=== PATIENT | female | born 1980 | race Two or more races ===

== ENCOUNTER 2017-07-14 23:33 | Emergency (ER) | payer SELFPAY ==
[~2017-07-14] VITALS: Ht 162.6 cm; Wt 99.8 kg
[2017-07-15 00:13] LABS: Basophils # (auto) 0.3 uL; Basophils % (auto) 2.5 % (0.0-2.0); DEFINITIVE SEE PRINTOUT; Eosinophils # (auto) 0.4 uL; Eosinophils % (auto) 3.3 % (0.0-7.0); Hematocrit 31.2 % (36.0-46.0); Hemoglobin 9.7 g/dL (12.2-16.2); Lymphocytes # (auto) 3.3 uL; Lymphocytes % (auto) 26.9 % (10.0-50.0); Mean Corpuscular Hemoglobin 26.3 pg (28.0-32.0); Mean Corpuscular Hgb Conc. 31.1 g/dL (32.0-36.0); Mean Corpuscular Volume 84.6 fL (80.0-100.0); Mean Platelet Volume 7.5 fL (7.4-10.4); Monocytes # (auto) 1.2 uL; Monocytes % (auto) 9.4 % (0.0-12.0); Neutrophils # (auto) 7.2 uL; Neutrophils % (auto) 57.9 % (37.0-80.0); Platelet Count (auto) 507 10^3/uL (140-450); Red Cell Distribution Width 15.2 % (11.6-16.0); White Blood Cell 12.4 10^3/uL (4.4-10.8)
[2017-07-15 00:38] LABS: Albumin 2.9 g/dL (3.4-5.0); Anion Gap 13 (5-15); Aspartate Aminotransferase 26 U/L (15-37); BUN/Creatinine Ratio 22.1; Blood Urea Nitrogen 17 mg/dL (7-18); Calcium 7.2 mg/dL (8.5-10.1); Carbon Dioxide 17 mmol/L (21-32); Chloride 114 mmol/L (98-107); GFR African American 109 mL/min; GFR Non-African American 90 mL/min; Glucose 180 mg/dL (74-106); Potassium 3.4 mmol/L (3.5-5.1); Sodium 144 mmol/L (136-145)
[2017-07-15 00:41] LABS: Alkaline Phosphatase 92 U/L (45-117); Bilirubin, Total < 0.1 mg/dL (0.2-1.0); Total Protein 6.8 g/dL (6.4-8.2)
[2017-07-15 02:29] VITALS: BP 118/78
== END 2017-07-15 02:33 | disposition home or self-care (01) ==
LOC: ER 23:37
DX: S43.102A Unspecified dislocation of left acromioclavicular joint, initial encounter (principal); Y08.89XA Assault by other specified means, initial encounter; Y93.89 Activity, other specified; Y99.8 Other external cause status; Y92.89 Other specified places as the place of occurrence of the external cause
CPT/HCPCS: 36415; 73030; 80053; 84702; 85025

== ENCOUNTER 2017-12-20 13:47 | Inpatient (IN) | payer MEDICAID ==
[~2017-12-20] VITALS: Ht 167.6 cm; Wt 95.0 kg
[2017-12-20] MEDS ORDERED: SODIUM CHLORIDE 0.9% 1,000 ML IV ONE (14:01)
[2017-12-20] MEDS ORDERED: ALBUTEROL SULF 2.5 MG/0.5ML(0.5%) NEB SOLN HHN ONE (14:15)
[2017-12-20] MEDS ORDERED: IPRATROPIUM BROM 0.5 MG/2.5ML INH SOL HHN ONE (14:15)
[2017-12-20] MEDS ORDERED: methylPREDNISolone SOD SUCC 125 MG/2 ML VL IV ONE (14:15)
[2017-12-20 14:35] LABS: Eosinophils # (auto) 0 uL; Hemoglobin 10.1 g/dL (12.2-16.2); Lymphocytes # (auto) 4.2 uL; Nucleated Red Blood Cells % 0.1 %; White Blood Cell 17.3 10^3/uL (4.4-10.8)
[2017-12-20 14:37] LABS: Basophils # (auto) 0.2 uL; Basophils % (auto) 1.3 % (0.0-2.0); Eosinophils % (auto) 0.2 % (0.0-7.0); Hematocrit 32.5 % (36.0-46.0); Lymphocytes % (auto) 24.3 % (10.0-50.0); Mean Corpuscular Hemoglobin 24.1 pg (28.0-32.0); Mean Corpuscular Hgb Conc. 31.2 g/dL (32.0-36.0); Mean Corpuscular Volume 77.4 fL (80.0-100.0); Monocytes # (auto) 1.4 uL; Neutrophils # (auto) 11.5 uL; Neutrophils % (auto) 66.2 % (37.0-80.0); Platelet Count (auto) 482 10^3/uL (140-450); Red Cell Distribution Width 16.9 % (11.8-14.3)
[2017-12-20 15:03] LABS: Albumin 3.5 g/dL (3.4-5.0); BUN/Creatinine Ratio 7.4; Bilirubin, Total 0.2 mg/dL (0.2-1.0); Calcium 8.6 mg/dL (8.5-10.1); Potassium 3.1 mmol/L (3.5-5.1); Total Protein 8.4 g/dL (6.4-8.2)
[2017-12-20] MEDS ORDERED: DEXTROSE (50%) 50ML SYRG IV PRN (16:15)
[2017-12-20] MEDS ORDERED: NITROGLYCERIN 0.4 MG SL TAB SL PRN (16:15)
[2017-12-20] MEDS ORDERED: MORPHINE SULFATE 4 MG/ML SYR/VIAL IV PRN (16:15)
[2017-12-20] MEDS ORDERED: ALBUTEROL SULF 2.5 MG/0.5ML(0.5%) NEB SOLN NEB PRN (16:15)
[2017-12-20] MEDS ORDERED: LACTULOSE 20Gm/30ML SOLN PO PRN (16:15)
[2017-12-20] MEDS: ACCU-CHEK COMFORT CURVE STRIP VI SCH ×2 (17:11→21:22)
[2017-12-20] MEDS: InsuLIN REG 1unit/0.01ml Soln (100units/ml) SC SCH ×2 (17:37→21:18)
[2017-12-20] MEDS: ALBUTEROL SULF 2.5 MG/0.5ML(0.5%) NEB SOLN NEB SCH ×2 (18:15→23:23)
[2017-12-20 19:19] VITALS: BP 114/92
[2017-12-20] MEDS: ACETAMINOPHEN 500 MG TAB PO PRN (21:17)
[2017-12-20 22:00] VITALS: BP 134/66
[2017-12-21] MEDS ORDERED: methylPREDNISolone SOD SUCC 125 MG/2 ML VL IV ONE (00:45)
[2017-12-21 05:00] VITALS: BP 132/75
[2017-12-21] MEDS: InsuLIN REG 1unit/0.01ml Soln (100units/ml) SC SCH ×5 (06:03→21:48)
[2017-12-21 06:52] LABS: Basophils # (auto) 0 uL; Eosinophils # (auto) 0 uL; Lymphocytes # (auto) 0.5 uL; Monocytes # (auto) 0.1 uL; Neutrophils # (auto) 11.1 uL; Neutrophils % (auto) 94.3 % (37.0-80.0); Red Blood Cells 3.84 10^6/uL (4.0-5.20); White Blood Cell 11.8 10^3/uL (4.4-10.8)
[2017-12-21 06:55] LABS: Basophils % (auto) 0.2 % (0.0-2.0); Hematocrit 29.3 % (36.0-46.0); Hemoglobin 9.2 g/dL (12.2-16.2); Lymphocytes % (auto) 4.6 % (10.0-50.0); Mean Corpuscular Hgb Conc. 31.4 g/dL (32.0-36.0); Mean Corpuscular Volume 76.4 fL (80.0-100.0); Monocytes % (auto) 0.9 % (0.0-12.0); Platelet Count (auto) 386 10^3/uL (140-450); Red Cell Distribution Width 16.7 % (11.8-14.3)
[2017-12-21] MEDS: ALBUTEROL SULF 2.5 MG/0.5ML(0.5%) NEB SOLN NEB SCH ×4 (06:58→23:54)
[2017-12-21] MEDS: ACCU-CHEK COMFORT CURVE STRIP VI SCH ×5 (07:28→21:48)
[2017-12-21 08:20] VITALS: BP 134/71
[2017-12-21] MEDS: cefTRIAXone 1GM/10ml IVPUSH 10 ML IV SCH (11:11)
[2017-12-21] MEDS ORDERED: DEXTROSE (50%) 50ML SYRG IV PRN (11:15)
[2017-12-21] MEDS ORDERED: SODIUM CHLORIDE 0.9% 1,000 ML IV ONE (11:15)
[2017-12-21 11:53] VITALS: BP 125/77
[2017-12-21] MEDS: ACETYLCYSTEINE 10 %(100MG/ML) SOL 4ML NEB SCH ×2 (12:00→19:01)
[2017-12-21] MEDS: methylPREDNISolone SOD SUCC 40 MG/ML VL IV SCH ×2 (12:16→19:40)
[2017-12-21] MEDS ORDERED: IOHEXOL 350 MG/ML 100ML IJ ONE (12:30)
[2017-12-21 15:25] LABS: Alcohol, Urine < 3.0 mg/dL (0-5); Amphetamine Screen, Urine NEGATIVE (NEGATIVE); Barbiturate Scree,Urine NEGATIVE (NEGATIVE); Benzodiazephine Screen, Urine NEGATIVE (NEGATIVE); Cannabinoid Screen, Urine NEGATIVE (NEGATIVE); Cocaine Screen, Urine NEGATIVE (NEGATIVE); Opiate Scree,Urine NEGATIVE (NEGATIVE); Phencyclidine Screen, Urine NEGATIVE (NEGATIVE)
[2017-12-21 17:12] VITALS: BP 134/66
[2017-12-21] MEDS: LORazepam 0.5 MG TAB PO PRN (18:01)
[2017-12-21 22:04] VITALS: BP 121/72
[2017-12-21] MEDS: ACETAMINOPHEN 500 MG TAB PO PRN (23:18)
[2017-12-22] MEDS: LORazepam 0.5 MG TAB PO PRN ×2 (00:49→16:34)
[2017-12-22] MEDS: ACETYLCYSTEINE 10 %(100MG/ML) SOL 4ML NEB SCH ×4 (01:02→19:51)
[2017-12-22] MEDS: methylPREDNISolone SOD SUCC 40 MG/ML VL IV SCH ×2 (05:22→12:30)
[2017-12-22 05:27] VITALS: BP 106/52
[2017-12-22] MEDS: ACCU-CHEK COMFORT CURVE STRIP VI SCH ×4 (05:31→22:19)
[2017-12-22 06:02] LABS: Basophils # (auto) 0 uL; Eosinophils # (auto) 0 uL; Lymphocytes # (auto) 1.3 uL; Neutrophils # (auto) 15.2 uL
[2017-12-22] MEDS: InsuLIN REG 1unit/0.01ml Soln (100units/ml) SC SCH ×4 (06:04→22:19)
[2017-12-22 06:05] LABS: Basophils % (auto) 0.1 % (0.0-2.0); Hematocrit 28.9 % (36.0-46.0); Lymphocytes % (auto) 7.3 % (10.0-50.0); Mean Corpuscular Hemoglobin 23.9 pg (28.0-32.0); Mean Corpuscular Hgb Conc. 31.3 g/dL (32.0-36.0); Mean Corpuscular Volume 76.4 fL (80.0-100.0); Monocytes # (auto) 0.6 uL; Monocytes % (auto) 3.4 % (0.0-12.0); Neutrophils % (auto) 89.2 % (37.0-80.0); Platelet Count (auto) 379 10^3/uL (140-450); Red Blood Cells 3.78 10^6/uL (4.0-5.20); Red Cell Distribution Width 17.1 % (11.8-14.3)
[2017-12-22 06:18] LABS: Calcium 8.5 mg/dL (8.5-10.1); Potassium 3.8 mmol/L (3.5-5.1)
[2017-12-22] MEDS: ALBUTEROL SULF 2.5 MG/0.5ML(0.5%) NEB SOLN NEB SCH ×3 (08:37→19:51)
[2017-12-22 09:00] VITALS: BP 124/76
[2017-12-22] MEDS: cefTRIAXone 1GM/10ml IVPUSH 10 ML IV SCH (09:07)
[2017-12-22 13:00] VITALS: BP 140/73
[2017-12-22 17:00] VITALS: BP 116/69
[2017-12-22] MEDS ORDERED: EPINEPHrine HCL 0.5 ML NEB NEB ONE (19:15)
[2017-12-22 20:00] VITALS: BP 125/76
[2017-12-22] MEDS: ACETAMINOPHEN 500 MG TAB PO PRN (21:05)
[2017-12-22 21:55] VITALS: BP 125/76
[2017-12-22] MEDS: predniSONE 20 MG TAB PO SCH (22:18)
[2017-12-23] VITALS (7 sets, daily range): BP systolic 107–147; BP diastolic 59–84
[2017-12-23] MEDS: LORazepam 0.5 MG TAB PO PRN ×3 (00:32→17:43)
[2017-12-23] MEDS: ALBUTEROL SULF 2.5 MG/0.5ML(0.5%) NEB SOLN NEB SCH ×4 (01:01→20:03)
[2017-12-23] MEDS: ACETYLCYSTEINE 10 %(100MG/ML) SOL 4ML NEB SCH ×4 (01:02→20:03)
[2017-12-23] MEDS: ACCU-CHEK COMFORT CURVE STRIP VI SCH ×4 (06:41→21:32)
[2017-12-23] MEDS: InsuLIN REG 1unit/0.01ml Soln (100units/ml) SC SCH ×4 (06:42→21:36)
[2017-12-23] MEDS: predniSONE 20 MG TAB PO SCH ×2 (08:59→21:32)
[2017-12-23] MEDS: ACETAMINOPHEN 500 MG TAB PO PRN (20:27)
[2017-12-24] MEDS: ALBUTEROL SULF 2.5 MG/0.5ML(0.5%) NEB SOLN NEB SCH ×3 (00:52→11:27)
[2017-12-24] MEDS: ACETYLCYSTEINE 10 %(100MG/ML) SOL 4ML NEB SCH ×3 (00:52→11:27)
[2017-12-24] MEDS: LORazepam 0.5 MG TAB PO PRN ×2 (01:58→10:02)
[2017-12-24 05:25] VITALS: BP 118/74
[2017-12-24] MEDS: InsuLIN REG 1unit/0.01ml Soln (100units/ml) SC SCH ×2 (06:20→11:47)
[2017-12-24] MEDS: ACCU-CHEK COMFORT CURVE STRIP VI SCH ×2 (06:20→11:47)
[2017-12-24 09:00] VITALS: BP 141/75
[2017-12-24] MEDS: predniSONE 20 MG TAB PO SCH (10:02)
[2017-12-24 13:00] VITALS: BP 150/60
[2017-12-24 13:48] VITALS: BP 141/75
== END 2017-12-24 15:45 | disposition home or self-care (01) | DRG 115 ==
LOC: EDBD 13:47 → ER 13:47 → TELE 13:48 → TELE-WESTW 19:52
PROVIDERS: ADMIT Internal Medicine; ATTEND Internal Medicine
DX: J38.6 Stenosis of larynx (principal); J96.00 Acute respiratory failure, unspecified whether with hypoxia or hypercapnia; E11.65 Type 2 diabetes mellitus with hyperglycemia; J45.901 Unspecified asthma with (acute) exacerbation; E66.9 Obesity, unspecified; D72.829 Elevated white blood cell count, unspecified; R00.0 Tachycardia, unspecified; F41.9 Anxiety disorder, unspecified; J45.909 Unspecified asthma, uncomplicated; Z79.899 Other long term (current) drug therapy; Z83.3 Family history of diabetes mellitus; Z98.84 Bariatric surgery status; Z68.33 Body mass index [BMI] 33.0-33.9, adult; J40 Bronchitis, not specified as acute or chronic
CPT/HCPCS: 36415; 70490; 71045; 71275; 80048; 80053; 80307; 81025; 82962; 83036; 84132; 85025; 85379; 87400; 94640; 94644; 96374; J1815

== ENCOUNTER 2017-12-28 16:36 | Inpatient (IN) | payer MEDICAID ==
[~2017-12-28] VITALS: Ht 167.6 cm; Wt 99.3 kg
[2017-12-28] MEDS ORDERED: SODIUM CHLORIDE 0.9% 1,000 ML IV ONE (16:44)
[2017-12-28 17:01] LABS: Basophils # (auto) 0 uL; Basophils % (auto) 0.2 % (0.0-2.0); Eosinophils # (auto) 0.1 uL; Hemoglobin 10.5 g/dL (12.2-16.2); Lymphocytes # (auto) 2.1 uL; Mean Corpuscular Hemoglobin 23.8 pg (28.0-32.0); Mean Corpuscular Hgb Conc. 30.8 g/dL (32.0-36.0); Monocytes # (auto) 0.7 uL; Red Cell Distribution Width 18.1 % (11.8-14.3)
[2017-12-28 17:03] LABS: Eosinophils % (auto) 0.7 % (0.0-7.0); Lymphocytes % (auto) 20.7 % (10.0-50.0); Mean Corpuscular Volume 77.5 fL (80.0-100.0); Monocytes % (auto) 7.4 % (0.0-12.0); Neutrophils # (auto) 7.1 uL; Platelet Count (auto) 472 10^3/uL (140-450); Red Blood Cells 4.39 10^6/uL (4.0-5.20)
[2017-12-28] MEDS ORDERED: ALBUTEROL SULF 2.5 MG/0.5ML(0.5%) NEB SOLN NEB ONE (17:15)
[2017-12-28] MEDS ORDERED: methylPREDNISolone SOD SUCC 125 MG/2 ML VL IV ONE (17:15)
[2017-12-28] MEDS ORDERED: PANTOPRAZOLE 40 MG/10 ML VIAL IV ONE (17:15)
[2017-12-28] MEDS ORDERED: IPRATROPIUM BROM 0.5 MG/2.5ML INH SOL NEB ONE (17:15)
[2017-12-28 17:18] LABS: Albumin 3.5 g/dL (3.4-5.0); Anion Gap 10 (5-15); BUN/Creatinine Ratio 12.7; Blood Urea Nitrogen 10 mg/dL (7-18); Carbon Dioxide 24 mmol/L (21-32); Chloride 108 mmol/L (98-107); GFR African American 105 mL/min; GFR Non-African American 87 mL/min; Glucose 223 mg/dL (74-106); Magnesium 2.2 mg/dL (1.6-2.6); Potassium 3.8 mmol/L (3.5-5.1); Sodium 142 mmol/L (136-145)
[2017-12-28 17:21] LABS: Alanine Aminotransferase 27 U/L (13-56); Alkaline Phosphatase 84 U/L (45-117); Aspartate Aminotransferase 15 U/L (15-37); Bilirubin, Total 0.2 mg/dL (0.2-1.0); Total Protein 7.5 g/dL (6.4-8.2)
[2017-12-28] MEDS ORDERED: NITROGLYCERIN 0.4 MG SL TAB SL PRN (18:30)
[2017-12-28] MEDS ORDERED: TEMAZEPAM 15 MG CAP PO PRN (18:30)
[2017-12-28] MEDS ORDERED: OSELTAMIVIR 75 MG CAP PO ONE (18:30)
[2017-12-28] MEDS ORDERED: ACETAMINOPHEN 500 MG TAB PO PRN (18:30)
[2017-12-28] MEDS ORDERED: LACTULOSE 20Gm/30ML SOLN PO PRN (18:30)
[2017-12-28] MEDS ORDERED: DEXTROSE (50%) 50ML SYRG IV PRN (18:30)
[2017-12-28] MEDS ORDERED: LORazepam 0.5 MG TAB PO PRN (18:30)
[2017-12-28] MEDS ORDERED: ALBUTEROL SULF 2.5 MG/0.5ML(0.5%) NEB SOLN NEB PRN (18:30)
[2017-12-28] MEDS ORDERED: MORPHINE SULFATE 4 MG/ML SYR/VIAL IV PRN (18:30)
[2017-12-28] MEDS ORDERED: PROMETHAZINE HCL 25 MG/ML 1ML IV PRN (18:30)
[2017-12-28] MEDS: SODIUM CHLORIDE 0.9% 1,000 ML IV SCH (18:42)
[2017-12-28 19:55] VITALS: BP 138/61
[2017-12-28 20:15] VITALS: BP 136/74
[2017-12-28] MEDS: MORPHINE SULFATE 4 MG/ML SYR/VIAL IV PRN (21:46)
[2017-12-28] MEDS: DOXYCYCLINE HYC 100MG/250ML 250 ML IV SCH (21:59)
[2017-12-28 22:00] VITALS: BP 136/74
[2017-12-28 22:33] LABS: Urine Bacteria NONE SEEN /hpf (None Seen); Urine Blood Negative /uL (Negative); Urine Mucus FEW (None Seen); Urine Specific Gravity 1.032 (1.001-1.035); Urine WBC 1 /hpf (0 - 5)
[2017-12-28] MEDS: InsuLIN REG 1unit/0.01ml Soln (100units/ml) SC SCH (22:53)
[2017-12-28] MEDS: ACCU-CHEK COMFORT CURVE STRIP VI SCH (22:53)
[2017-12-28] MEDS: IPRATROPIUM BROM 0.5 MG/2.5ML INH SOL NEB SCH (23:51)
[2017-12-28] MEDS: ALBUTEROL SULF 2.5 MG/0.5ML(0.5%) NEB SOLN NEB SCH (23:51)
[2017-12-28] MEDS: methylPREDNISolone SOD SUCC 40 MG/ML VL IV SCH (23:58)
[2017-12-29] MEDS: HYDROcodone-ACET 5/325MG TAB PO PRN (00:09)
[2017-12-29] MEDS ORDERED: methylPREDNISolone SOD SUCC 125 MG/2 ML VL IV ONE (01:00)
[2017-12-29] MEDS ORDERED: THROAT LOZENGES(CEPASTAT) MT PRN (01:00)
[2017-12-29] MEDS ORDERED: PRE1T PO (03:36)
[2017-12-29] MEDS ORDERED: LORA-654 PO (03:36)
[2017-12-29 05:00] VITALS: BP 139/79
[2017-12-29] MEDS: methylPREDNISolone SOD SUCC 40 MG/ML VL IV SCH ×3 (05:50→18:38)
[2017-12-29] MEDS: DOXYCYCLINE HYC 100MG/250ML 250 ML IV SCH ×2 (05:58→18:45)
[2017-12-29] MEDS: ACCU-CHEK COMFORT CURVE STRIP VI SCH ×4 (06:00→21:57)
[2017-12-29] MEDS: InsuLIN REG 1unit/0.01ml Soln (100units/ml) SC SCH ×4 (06:04→21:57)
[2017-12-29] MEDS: IPRATROPIUM BROM 0.5 MG/2.5ML INH SOL NEB SCH ×3 (06:42→19:47)
[2017-12-29] MEDS: ALBUTEROL SULF 2.5 MG/0.5ML(0.5%) NEB SOLN NEB SCH (06:42)
[2017-12-29] MEDS: MORPHINE SULFATE 4 MG/ML SYR/VIAL IV PRN ×3 (07:40→15:48)
[2017-12-29] MEDS: SODIUM CHLORIDE 0.9% 1,000 ML IV SCH ×2 (07:41→21:01)
[2017-12-29 08:22] VITALS: BP 131/77
[2017-12-29] MEDS: HYDROcodone-ACET 10/325MG TAB PO PRN ×4 (08:44→21:55)
[2017-12-29] MEDS ORDERED: OSELTAMIVIR 75 MG CAP PO SCH (10:00)
[2017-12-29 11:58] VITALS: BP 130/75
[2017-12-29 17:04] VITALS: BP 137/71
[2017-12-29] MEDS: EPINEPHrine HCL 0.5 ML NEB NEB SCH (19:47)
[2017-12-29 21:40] VITALS: BP 137/68
[2017-12-30] MEDS: EPINEPHrine HCL 0.5 ML NEB NEB SCH ×4 (01:07→20:05)
[2017-12-30] MEDS: IPRATROPIUM BROM 0.5 MG/2.5ML INH SOL NEB SCH ×4 (01:07→20:05)
[2017-12-30 04:40] VITALS: BP 120/71
[2017-12-30] MEDS: DOXYCYCLINE HYC 100MG/250ML 250 ML IV SCH ×2 (05:23→18:30)
[2017-12-30] MEDS: methylPREDNISolone SOD SUCC 40 MG/ML VL IV SCH ×4 (05:23→18:43)
[2017-12-30] MEDS: InsuLIN REG 1unit/0.01ml Soln (100units/ml) SC SCH ×4 (05:24→22:22)
[2017-12-30] MEDS: ACCU-CHEK COMFORT CURVE STRIP VI SCH ×4 (05:24→22:22)
[2017-12-30 08:00] VITALS: BP 132/73
[2017-12-30] MEDS: HYDROcodone-ACET 10/325MG TAB PO PRN ×4 (08:00→18:43)
[2017-12-30] MEDS: MORPHINE SULFATE 4 MG/ML SYR/VIAL IV PRN ×3 (08:22→18:43)
[2017-12-30] MEDS ORDERED: CEFTRIAXONE SODIUM 2 GM in D5W 5% 50 ML IV ONE (09:30)
[2017-12-30] MEDS: SODIUM CHLORIDE 0.9% 1,000 ML IV SCH ×2 (10:31→23:33)
[2017-12-30 12:20] VITALS: BP 121/66
[2017-12-30 16:38] VITALS: BP 136/79
[2017-12-30] MEDS: HYDROcodone-ACET 5/325MG TAB PO PRN (20:51)
[2017-12-30 22:29] VITALS: BP 124/64
[2017-12-31] MEDS: IPRATROPIUM BROM 0.5 MG/2.5ML INH SOL NEB SCH ×3 (00:52→12:14)
[2017-12-31] MEDS: EPINEPHrine HCL 0.5 ML NEB NEB SCH ×3 (00:52→12:14)
[2017-12-31] MEDS: methylPREDNISolone SOD SUCC 40 MG/ML VL IV SCH ×2 (04:29)
[2017-12-31 05:14] VITALS: BP 127/80
[2017-12-31] MEDS: InsuLIN REG 1unit/0.01ml Soln (100units/ml) SC SCH (05:37)
[2017-12-31] MEDS: ACCU-CHEK COMFORT CURVE STRIP VI SCH (05:39)
[2017-12-31] MEDS: DOXYCYCLINE HYC 100MG/250ML 250 ML IV SCH (05:39)
[2017-12-31 06:52] LABS: Basophils # (auto) 0 uL; Basophils % (auto) 0.1 % (0.0-2.0); Eosinophils # (auto) 0 uL; Hemoglobin 9.9 g/dL (12.2-16.2)
[2017-12-31 06:54] LABS: Hematocrit 31.5 % (36.0-46.0); Lymphocytes # (auto) 1.2 uL; Lymphocytes % (auto) 8.2 % (10.0-50.0); Mean Corpuscular Hemoglobin 24.2 pg (28.0-32.0); Mean Corpuscular Hgb Conc. 31.3 g/dL (32.0-36.0); Mean Corpuscular Volume 77.1 fL (80.0-100.0); Monocytes # (auto) 0.6 uL; Monocytes % (auto) 4.3 % (0.0-12.0); Neutrophils # (auto) 13.2 uL; Neutrophils % (auto) 87.4 % (37.0-80.0); Platelet Count (auto) 394 10^3/uL (140-450); Red Blood Cells 4.08 10^6/uL (4.0-5.20); Red Cell Distribution Width 17.9 % (11.8-14.3); White Blood Cell 15.1 10^3/uL (4.4-10.8)
[2017-12-31 06:59] LABS: BUN/Creatinine Ratio 34.5; Calcium 8.2 mg/dL (8.5-10.1); Potassium 4.2 mmol/L (3.5-5.1)
[2017-12-31 09:00] VITALS: BP 129/84
[2017-12-31] MEDS ORDERED: cefTRIAXone 1GM/10ml IVPUSH 10 ML IV SCH (09:00)
[2017-12-31 12:32] VITALS: BP 129/84
== END 2017-12-31 13:00 | disposition home or self-care (01) | DRG 194 ==
LOC: ER 16:36 → EDBD 16:36 → TELE 16:37 → TELE-EAST 20:09
PROVIDERS: ADMIT Internal Medicine; ATTEND Family Medicine
DX: J18.9 Pneumonia, unspecified organism (principal); J45.901 Unspecified asthma with (acute) exacerbation; Z86.74 Personal history of sudden cardiac arrest; E66.01 Morbid (severe) obesity due to excess calories; E11.9 Type 2 diabetes mellitus without complications; B95.61 Methicillin susceptible Staphylococcus aureus infection as the cause of diseases classified elsewhere; J20.9 Acute bronchitis, unspecified; Z68.35 Body mass index [BMI] 35.0-35.9, adult; Z83.3 Family history of diabetes mellitus; Z98.84 Bariatric surgery status
CPT/HCPCS: 36415; 71045; 80048; 80053; 81001; 82962; 83036; 83735; 84484; 85025; 87070; 87077; 87081; 87186; 87205; 87804; 93005; 94640; 96361; 96374; 96375; C9113; J0696; J1815; J3490; J7060